=== PATIENT | male | born 1940 | race Caucasian/White ===

== ENCOUNTER 2017-09-14 16:43 | Emergency (ER) | payer MEDICARE ==
[2017-09-14 16:54] VITALS: BP 178/81
--- NOTE | 2017-09-14 17:06 | ED ---
Throat Pain/Nasal Congestion - HPI Summary HPI Summary: 77 yr old male with left upper eyelid bruise. Onset this afternoon, no known trauma or injuries. He is only on baby aspirin. No bruising, gum bleeding, hematuria, blood in stool or other complaints. His vision is just like it always is. No problem with his eyes. He has a history of hypertension. - History of Current Complaint Chief Complaint: UCEye Time Seen by Provider: 09/14/17 16:55 - Allergies/Home Medications Allergies/Adverse Reactions: Allergies Allergy/AdvReac Type Severity Reaction Status Date / Time No Known Allergies Allergy Verified 09/14/17 16:59 Home Medications: Home Medications Aspirin [Aspirin 81 MG TAB] 81 mg PO DAILY 09/14/17 [History Confirmed 09/14/17] Lisinopril TAB* [Prinivil TAB*] 10 mg PO DAILY 09/14/17 [History Confirmed 09/14] Metoprolol Succinate XL TAB* [Toprol XL TAB*] 50 mg PO DAILY 09/14/17 [History Confirmed 09/14/17] Nitroglycerin TAB 0.4 MG* 0.4 mg SL Q5M PRN 09/14/17 [History Confirmed 09/14/17 ] amLODIPine TAB* [Norvasc 5 mg TAB*] 5 mg PO DAILY 09/14/17 [History Confirmed ] PMH/Surg Hx/FS Hx/Imm Hx Cardiovascular History: Reports: Hx Hypertension Respiratory History: Reports: Hx Chronic Obstructive Pulmonary Disease (COPD) - Surgical History Surgery Procedure, Year, and Place: hernia. hydrocele Infectious Disease History: No Infectious Disease History: Denies: Traveled Outside the [place] in Last 30 Days - Family History Known Family History: Positive: Hypertension - Social History Occupation: Retired Alcohol Use: Occasionally Substance Use Type: Reports: None Smoking Status (MU): Former Smoker Review of Systems Constitutional: Negative Positive: Other - eyelid bruising Positive: Bruising - eyelid left upper only All Other Systems Reviewed And Are Negative: Yes Physical Exam Triage Information Reviewed: Yes Vital Signs On Initial Exam: Initial Vitals Temp Pulse Resp BP Pulse Ox 98.1 F 57 18 178/81 96 09/14/17 16:46 09/14/17 16:46 09/14/17 16:46 09/14/17 16:46 09/14/17 16:46 Vital Signs Reviewed: Yes Appearance: Positive: Well-Appearing, No Pain Distress Head/Face: Positive: Normal Head/Face Inspection Eyes: Positive: Normal, EOMI, CROW, Conjunctiva Clear, Other: - left upper eyelid is with bruising, and some swelling. No active bleeding. ENT: Positive: Pharynx normal Respiratory/Lung Sounds: Positive: Clear to Auscultation, Breath Sounds Present Cardiovascular: Positive: RRR Abdomen Description: Positive: Nontender Musculoskeletal: Positive: Strength/ROM Intact Neurological: Positive: Sensory/Motor Intact, Alert, Oriented to Person Place, Time, CN Intact II-III Psychiatric: Positive: Normal - [place] Coma Scale Best Eye Response: 4 - Spontaneous Best Motor Response: 6 - Obeys Commands Best Verbal Response: 5 - Oriented Diagnostics - Vital Signs Vital Signs Temp Pulse Resp BP Pulse Ox 09/14/17 16:46 98.1 F 57 18 178/81 96 - Laboratory Lab Statement: Any lab studies that have been ordered have been reviewed, and results considered in the medical decision making process. EENT Course/Dx - Course Course Of Treatment: 77 yr old with left upper eyelid bruising without any other bruising or bleeding. he will FU with PMD and for any worse bruising or new bleeding will go to the ER. he is not on anticoagulants. - Diagnoses Provider Diagnoses: spontaneous hematoma eyelid Discharge - Discharge Plan Condition: Good Disposition: HOME Patient Education Materials: Hypertension (ED), Hematoma (ED) Referrals: [facility] [place] [facility] [Outside] - 09/16/17
== END 2017-09-14 17:10 | disposition home or self-care (01) ==
LOC: UCCORT 16:43
DX: S00.12XA Contusion of left eyelid and periocular area, initial encounter (principal); I10 Essential (primary) hypertension; J44.9 Chronic obstructive pulmonary disease, unspecified; X58.XXXA Exposure to other specified factors, initial encounter; Z87.891 Personal history of nicotine dependence; Z79.82 Long term (current) use of aspirin
CPT/HCPCS: 99202; G0463